=== PATIENT | female | born 1960 ===

== ENCOUNTER 2016-04-26 07:35 | Day surgery (SDC) | payer BC ==
[2016-04-24 08:54] VITALS: BMI 39.1
[~2016-04-26 07:35] MED LIST: LACTATED RINGERS 1,000 ML IV SCH; LIDOCAINE 1% 20 ML VIAL (10MG/ML) FOR IV START INTRADERMA PRN
[2016-04-26 07:47] VITALS: TEMP 98.4
[2016-04-26 07:53] LABS: Glucose,Whole Blood 125 mg/dL (75-99)
[2016-04-26] MEDS ORDERED: PROPOFOL 10 MG/ML 20 ML VIAL IV ONE (08:25)
--- NOTE | 2016-04-26 08:51 | P.PCN ---
Date of Procedure: 04/26/16 Procedure(s) Performed: BRIEF HISTORY: Patient is a 55-year-old pleasant female, scheduled for an elective colonoscopy as a part of screening for colorectal neoplasia. PROCEDURE PERFORMED: Colonoscopy snare polypectomy. PREOPERATIVE DIAGNOSIS: Screening for colon cancer. IV sedation per Anesthesia. PROCEDURE: After informed consent was obtained, the patient, was brought into the endoscopy unit. IV conscious sedation was administered by Anesthesia under continuous monitoring. Initially the Olympus CF-160 flexible video colonoscope was then inserted in the rectum, gradually advanced into the cecum without any difficulty. Careful examination was performed as the scope was gradually being withdrawn. Ileocecal valve and the appendiceal orifice were visualized and appeared normal. Prep was excellent. In the base of the cecum there was a 1 cm polyp removed by snare polypectomy. In the ascending colon there was another 1 mL polyp removed by snare polypectomy. In the transverse colon there were 3 polyps measuring between 1 cm to 2 cm in size all of which were removed by snare polypectomy. Rest of themucosa of the cecum, ascending colon, transverse colon, descending colon, sigmoid colon, and rectum appeared normal. Retroflexion was performed in the rectum and no lesions were seen. The patient tolerated the procedure well. IMPRESSION: 1 cm cecal polyp status post polypectomy 1 cm ascending colon polyp serous was snare polypectomy 1 cm and 2 cm 2 transverse colon polyps status post polypectomy RECOMMENDATIONS: Findings of this examination were discussed with the patient as well as her family. She was advised to follow with the biopsy results. If the biopsy shows a tubular adenoma she can have a repeat colonoscopy in 3 years
[2016-04-26 09:14] VITALS: BP 141/94; PULSE 76; RESP 18
== END 2016-04-26 09:51 | disposition home or self-care (01) ==
LOC: ORWHC2ENDO 07:35
PROVIDERS: ATTEND Internal Medicine Gastroenterology
DX: Z12.11 Encounter for screening for malignant neoplasm of colon (principal); D12.0 Benign neoplasm of cecum; D12.2 Benign neoplasm of ascending colon; D12.3 Benign neoplasm of transverse colon; K63.5 Polyp of colon; I10 Essential (primary) hypertension; E78.5 Hyperlipidemia, unspecified; E11.9 Type 2 diabetes mellitus without complications; Z79.84 Long term (current) use of oral hypoglycemic drugs; Z79.82 Long term (current) use of aspirin; Z79.899 Other long term (current) drug therapy
CPT/HCPCS: 88305; 45385; J2704; 99153